=== PATIENT | female | born 1990 | race Caucasian/White ===

== ENCOUNTER 2023-01-20 11:57 | Outpatient (AMB) | payer OTHER, SELFPAY ==
--- NOTE | 2023-01-20 13:38 | AM.OFFWIN_ITS ---
Intake Vital Signs 01/20/23 13:46 Weight 323 lb BP 130/80 Blood Pressure Location Lt brachial Position Sitting Pulse 94 Pulse Source Pulse Oximeter Temp 97.3 F Temp Source Temporal Artery Scan Pulse Oximetry (%) 98 Oxygen Delivery Method Room Air Intake Visit Reasons: [employer] Cough, Sore throat, diarrhea [phone] Intake Note: pt is here for c/o cough, sore throat, and diarrhea Allergies No Known Allergies Allergy (Verified 01/20/23 13:40) Do you need a note to return to daycare/school/sports/work: Yes HPI HPI Comments History of Present Illness Details 32-year-old female presents for cough co ngestion sore throat. Patient started developing symptoms the weekend after going out to a event with her nieces and nephews. She does endorse some nausea and episode of diarrhea. Denies fevers or chills. On COVID test was negative Review of Systems Resp Reports chest congestion and Reports cough GI Reports diarrhea and Reports nausea Physical Exam Vital Signs: Last Vital Signs Temp 97.3 F 01/20/23 13:46 Pulse 94 01/20/23 13:46 BP 130/80 01/20/23 13:46 Pulse Ox 98 01/20/23 13:46 Oxygen Delivery Method Room Air 01/20/23 13:46 Const General: cooperative, no acute distress and alert Orientation/consciousness: patient oriented x3 Limitations: no limitations HEENT Head: Yes normal to inspection Ears: hearing grossly normal bilaterally and external ears normal General nose exam: Normal external nose present Eyes General: appearance normal, both eyes and all related structures Neck Neck: Yes normal visual inspection Chest Chest palpation & inspection: normal inspection of the chest Resp Effort & Inspection: normal respiratory effort and able to speak in complete sentences Cardio Rate: regular rate Rhythm: regular rhythm GI Inspection: Yes normal to inspection Palpation (GI): Soft to palpation and nontender Skin General skin exam: no rashes or lesions noted Neuro General: patient oriented x3 Psych Appearance: grossly normal Mental Status: mental status grossly normal Speech and movement: Normal speech and movement present Affect: normal affect Attitude: cooperative Thought process: Normal thought process present Thought content: Normal thought content present Results AMB Rapid Strep AMB Rapid Strep Negative Last Edit by Lorri Lim MA on 01/20/23 13:53 Results Reviewed Results Reviewed: Laboratory Last Values Strep Scn [facility] Negative 01/20/23 13:52 Assessment & Plan Assessment & Plan (1) URI (upper respiratory infection): Code(s): J06.9 - Acute upper respiratory infection, unspecified Qualifiers: URI type: unspecified viral URI Qualified Code(s): J06.9 - Acute upper respiratory infection, unspecified Plan: Signs and symptoms consistent with viral URI. Suspect Rhino/Entero with GI involvement. Recommend can see you symptomatic treatment. Discharge instructions, follow up and treatment are discussed with patient in my usual fashion. Alternatives in treatment are also discussed. The patient will return for worsening symptoms or as needed. Advised that any labs/imaging ordered will be followed up on and contact made if further treatment needed. Counseled that patient's condition may require further evaluation and/or treatment. Symptoms of concern for worsening disorder discussed in detail in my customary manner. Patient does verbalize understanding of the plan, there are no apparent barriers to communication. The patient is given the opportunity to ask questions and have them answered to his/her satisfaction Orders: Orders AMB Rapid Strep Screen Today Z13.9 - Encounter for screening, unspecified Medications: New benzonatate 100 mg PO BID PRN 10 caps 0RF cough Coding Level of Care Code New Pt Level 3 (51364) Diagnoses Viral upper respiratory tract infection J06.9 URI type: unspecified viral URI
[2023-01-20 13:46] VITALS: BP 130/80; PULSE 94; TEMP 36.3; O2SAT 98
== END 2023-01-20 14:09 | disposition home or self-care (01) ==
PROVIDERS: Visit Provider Physician Assistant
DX: J06.9 Acute upper respiratory infection, unspecified (principal); J02.9 Acute pharyngitis, unspecified
CPT/HCPCS: 87880; 99203